=== PATIENT | female | born 1970 | race Two or more races ===

== ENCOUNTER → 2025-01-20 | Outpatient (CLI) | payer BC, MEDICAID, SELFPAY ==
--- NOTE | 2025-01-20 15:00 | XR_ITS ---
Examination: Screening digital mammography, bilateral Computer aided detection 3-D breast Tomosynthesis, bilateral Date and time of exam: January 12, 2025 1455 hours INDICATIONS: Bilateral breast pain several years Compared to mammograms dating to January 25, 2017 Technique: Nonmagnified MLO, CC views of the breasts to been obtained, reconstructed from 3-D Tomosynthesis images. R2 computer aided detection program utilized for evaluation of suspicious masses and/or abnormal calcifications. 3-D Tomosynthesis images obtained. Findings: The breasts are heterogeneously dense, which may obscure small masses 16 mm focal asymmetry retroareolar region left breast Impression: BI-RADS Category 0: Incomplete: Need additional imaging evaluation Recommend follow-up spot tomographic views of 16 mm focal asymmetry retroareolar region left breast Recommend bilateral breast sonography follow-up given the patient's history of bilateral breast pain
== END | disposition home or self-care (01) ==
LOC: CDIM 14:45
PROVIDERS: PCP Physician Assistant; Referring Provider Physician Assistant; Visit Provider Physician Assistant
DX: Z12.31 Encounter for screening mammogram for malignant neoplasm of breast (principal); N64.89 Other specified disorders of breast
CPT/HCPCS: 77063; 77067

== ENCOUNTER → 2025-03-30 | Outpatient (CLI) | payer BC, MEDICAID, SELFPAY ==
--- NOTE | 2025-03-30 10:15 | XR_ITS ---
Examination: Breast ultrasound complete, bilateral Date and time of exam: March 30, 2025 1028 hours Comparison August 16, 2021 INDICATIONS: Mammogram January 20, 2025 16 mm focal asymmetry retroareolar region left breast, family history, sister, breast cancer Technique: Real-time grayscale ultrasonographic imaging bilateral breasts, including all 4 quadrants as well as nipple retroareolar and axillary regions. Findings: Sonographic images right breast No cystic or solid mass Sonographic images left breast 2:00 nodule lobular margins 8 x 6 mm IMPRESSION: BI-RADS Category 3: Probably benign findings One additional continued 6 month left breast sonogram follow-up is needed to document stability of 2:00 nodule left breast described above
--- NOTE | 2025-03-30 11:15 | XR_ITS ---
Examination: Diagnostic digital mammography, unilateral, left Computer aided detection 3-D breast Tomosynthesis, unilateral Date and time of exam: March 30, 2025 1040 hours INDICATIONS: Mammogram January 12, 2025 16 mm focal asymmetry retroareolar region left breast Technique: Nonmagnified MLO, CC views of the left breast have been obtained, reconstructed from 3-D Tomosynthesis images. R2 computer aided detection program utilized for evaluation of suspicious masses and/or abnormal calcifications. 3-D Tomosynthesis images obtained. Findings: The breast is heterogeneously dense, which may obscure small masses 2:00 nodule left breast, 7 mm, likely corresponding to 2:00 nodule 8 mm on left breast sonogram today Impression: BI-RADS category 3: Probably benign findings One additional 6 month left mammogram follow-up needed to document stability of 2:00 nodule left breast
== END | disposition home or self-care (01) ==
LOC: CDIM 10:12
PROVIDERS: PCP Physician Assistant; Referring Provider Physician Assistant; Visit Provider Physician Assistant
DX: R92.332 Mammographic heterogeneous density, left breast (principal); N63.21 Unspecified lump in the left breast, upper outer quadrant
CPT/HCPCS: 76641; 77061; 77065; G0279

== ENCOUNTER → 2025-08-04 | Outpatient (CLI) | payer BC, MEDICAID, SELFPAY ==
--- NOTE | 2025-08-04 16:30 | XR_ITS ---
Examination: Diagnostic digital mammography, unilateral, left Computer aided detection 3-D breast Tomosynthesis, unilateral Date and time of exam: 08/04/2025, 4:59 p.m. Comparisons: August 2022 through March 2025 Indications: 2:00 seen on prior screening and diagnostic mammogram. Technique: Nonmagnified MLO, CC views of the left breast have been obtained, reconstructed from 3-D Tomosynthesis images. R2 computer aided detection program utilized for evaluation of suspicious masses and/or abnormal calcifications. 3-D Tomosynthesis images obtained. Technologist: Findings: The breasts are heterogeneously dense, which may obscure small masses. Focal asymmetry retroareolar/upper outer quadrant unchanged from prior exam. Otherwise, no evidence of abnormal masses or suspicious calcifications. Impression: Persistent focal asymmetry as above. Ultrasound evaluation is recommended. BI-RADS category 0: Incomplete assessment; need additional imaging evaluation
== END | disposition home or self-care (01) ==
LOC: CDIM 16:12
PROVIDERS: Referring Provider Physician Assistant; Visit Provider Physician Assistant
DX: R92.8 Other abnormal and inconclusive findings on diagnostic imaging of breast (principal)
CPT/HCPCS: 77061; 77065; G0279